=== PATIENT | male | born 1990 | race Two or more races ===

== ENCOUNTER 2022-05-30 08:45 | Emergency (ER) | payer SELFPAY ==
[2022-05-30 08:53] VITALS: BP 163/101; PULSE 68; RESP 18; TEMP 36.8; O2SAT 98; BMI 25.8
--- NOTE | 2022-05-30 08:55 | HMH.EDGENADL ---
ED Disposition Clinical Impression: Ingrown toenail of left foot with infection Disposition: Home, Self-Care Condition on Discharge: Good Instructions: DI for Ingrown Toenail Removal, DI for Infected Ingrown Toenail Additional Instructions: Continue clindamycin. Clean with warm soapy water and apply Neosporin ointment daily. [id number] acetaminophen or ibuprofen for pain. Return to the emergency department if worsening redness, pain, red streaks, or fever. Follow-up with podiatry, Dr. Siegel, if not improved in 4 to 5 days. Referrals: Provider,Referral, [Primary Care Provider] - - Critical Care Critical Care Time: No Attestation: On , the high probability of a clinically significant, sudden or life threatening deterioration of the following system(s) required my full and direct attention, intervention and personal management. The time I documented below is in addition to time spent performing reported procedures but includes the following listed in this critical care notation. Medical Decision Making - [place] Inquiry Pt receiving controlled substance: No Vital Signs: 05/30/22 08:53 05/30/22 08:58 Temperature 98.3 F Temperature Source Oral Pulse Rate 63 Pulse Rate [Left Radial] 68 Respiratory Rate 18 Blood Pressure 144/85 H Blood Pressure [Right Arm] 163/101 H Blood Pressure Mean [Right Arm] 121 Blood Pressure Source Automatic Cuff Blood Pressure Position Sitting 02 Sat by Pulse Oximetry 98 98 Oxygen Delivery Method Room Air Orders (Tests/Meds): ED MEDICATIONS Discontinued Medications Generic Name Dose Route Start Last Admin Trade Name Freq PRN Reason Stop Dose Admin Bupivacaine HCl 50 mg 05/30/22 09:11 Bupivacaine 0.5% 30ml Vial SQ 05/30/22 09:12 ONCE ONE General Adult HPI - General Stated complaint: Ingrown toenail Time Seen by Provider: 05/30/22 08:55 - History of Present Illness HPI narrative: The patient speaks [place]ian, a little bit of [place]an. His employer translates. He has an ingrown infected toenail, left great toe, for 2 weeks. A friend brought him some clindamycin from [place] which she has been taking for 1 week. He was supplied with 48 tablets. He has been taking it 3 times a day. He denies fever or pain. - Related Data Allergies Allergy/AdvReac Type Severity Reaction Status Date / Time No Known Allergies Allergy Verified 05/30/22 09:12 [facility] History - Hepatitis A Screen Attestation statement:: This patient has been screened for Hepatitis A risk factors. I have reviewed the patient's past medical history: Yes ROS Obtained: Yes Systems reviewed as appropriate & no additional complaints - Constitutional Constitutional: Denies fever(s) - Integumentary/Breasts Skin/Breast: Reports as per HPI Physical Exam - General General appearance: alert, in no apparent distress - Respiratory Respiratory exam: Absent: respiratory distress - Cardiovascular Cardiovascular exam: Present: regular rate - Expanded Lower Extremity Exam Left Comment: Ingrown toenail lateral aspect left great toe. Edema, erythema and ecchymotic discoloration extending from the lateral fold to the dorsal fold. Normal capillary refill and sensation. - Neurological Exam Neurological exam: Present: alert, oriented X3. Absent: motor sensory deficit Procedures - Miscellaneous Procedure Procedure Performed: Wedge Resection of Ingrown Toenail Performed by: CARROLL SOUZA Type: ingrown toenail Location: Left great toe Anesthesia: digital block Local anesthetic: 0.5% bupivicaine Patient sedated: no A wedge of distal toenail was removed on the affected side. Necrotic tissue debrided. Bandage applied. Patient tolerance: Patient tolerated the procedure well with no immediate complications
[2022-05-30 08:58] VITALS: BP 144/85; PULSE 63; O2SAT 98
--- NOTE | 2022-05-30 08:58 | PC.NURSE ---
pt ambulatory to room 10 with no complications. pt accompanied by employer who is translating for pt.
--- NOTE | 2022-05-30 09:07 | PC.NURSE ---
CHRISTIANNE CHAN at for patient eval
[2022-05-30 09:30] VITALS: BP 137/90; PULSE 73; O2SAT 98
--- NOTE | 2022-05-30 09:39 | PC.NURSE ---
Pt sitting up on ED stretcher after ingrown toenail procedure; ER MD reports to monitor his bleeding at this time. Employer at , call light within reach.
[2022-05-30 10:00] VITALS: BP 135/80; PULSE 60; O2SAT 99
--- NOTE | 2022-05-30 10:10 | PC.NURSE ---
pt right great toe was dressed with adaptic, nonadhearent pad and a small gauze wrap. Bleeding had stopped.
[2022-05-30 10:14] VITALS: BP 145/94; PULSE 68; RESP 16; TEMP 36.8; O2SAT 98
== END 2022-05-30 10:15 | disposition home or self-care (01) ==
LOC: ER 09:36
PROVIDERS: Emergency Provider Emergency Medicine
DX: L60.0 Ingrowing nail (principal); L08.89 Other specified local infections of the skin and subcutaneous tissue
CPT/HCPCS: 96372; 99282

== ENCOUNTER 2025-03-25 09:00 | Outpatient (CLI) | payer SELFPAY ==
[2025-03-26 06:09] LABS: Chlamydia trachomatis Negative (Negative); Neisseria gonorrhoeae Negative (Negative); Trichomonas vaginalis Negative (Negative)
== END 2025-03-25 23:59 | disposition home or self-care (01) ==
LOC: LAB.DROPOF 03-28 09:01
PROVIDERS: PCP Family Medicine; Visit Provider Nurse Practitioner
DX: R30.9 Painful micturition, unspecified (principal)
CPT/HCPCS: 87086; 87491; 87591; 87661